=== PATIENT | male | born 1975 | race Caucasian/White ===

== ENCOUNTER 2021-10-16 15:22 | Emergency (ER) | payer OTHER ==
[2021-10-16 15:32] VITALS: BP 154/111; PULSE 73; TEMP 98; BMI 25.8
== END 2021-10-16 16:31 | disposition home or self-care (01) ==
LOC: FER 15:22
PROC: 0HQGXZZ Repair Left Hand Skin, External Approach (ICD-10-PCS; principal; 2021-10-16)
DX: S61.211A Laceration without foreign body of left index finger without damage to nail, initial encounter (principal); W26.0XXA Contact with knife, initial encounter
CPT/HCPCS: 99282-25

== ENCOUNTER 2021-10-24 10:48 | Emergency (ER) | payer OTHER ==
[2021-10-24 10:55] VITALS: BP 159/101; PULSE 66; TEMP 99.2; BMI 27.3
== END 2021-10-24 11:37 | disposition home or self-care (01) ==
LOC: FER 10:48
DX: Z48.02 Encounter for removal of sutures (principal)
CPT/HCPCS: 99281-25

== ENCOUNTER 2022-06-25 04:53 | Day surgery (SDC) | payer OTHER ==
[2022-06-24 10:22] VITALS: BMI 27.4
[2022-06-25 13:07] VITALS: TEMP 98
[2022-06-25 13:36] VITALS: BP 133/95
[2022-06-25 13:54] VITALS: PULSE 65; RESP 18
== END 2022-06-25 13:47 | disposition home or self-care (01) ==
LOC: JASU-ENDO 04:53
PROVIDERS: ATTEND Student in an Organized Health Care Education/Training Program
PROC: 0DBL8ZX Excision of Transverse Colon, Via Natural or Artificial Opening Endoscopic, Diagnostic (ICD-10-PCS; principal; 2022-06-25 12:39)
DX: Z12.11 Encounter for screening for malignant neoplasm of colon (principal); D12.3 Benign neoplasm of transverse colon; K57.30 Diverticulosis of large intestine without perforation or abscess without bleeding; K64.8 Other hemorrhoids; I10 Essential (primary) hypertension; E11.9 Type 2 diabetes mellitus without complications
CPT/HCPCS: 82962; 88305-TC